=== PATIENT | male | born 1975 | race Caucasian/White ===

== ENCOUNTER 2022-07-01 11:58 | Inpatient (IN) | payer MEDICARE, OTHER ==
[~2022-07-01] VITALS: Ht 190.5 cm; Wt 69.1 kg
[2022-07-01 13:03] LABS: HEMOGLOBIN 15.5 gm/dl (14.0-17.5); RED BLOOD COUNT 5.03 M/UL (4.20-5.50); WHITE BLOOD COUNT 16.3 K/UL (4.5-11.0)
[2022-07-01 13:29] LABS: BUN/CREATININE RATIO 15 (0-10)
[2022-07-02 07:07] LABS: HEMOGLOBIN 14.8 gm/dl (14.0-17.5); RED BLOOD COUNT 4.78 M/UL (4.20-5.50)
[2022-07-02 07:36] LABS: BUN/CREATININE RATIO 15 (0-10)
--- NOTE | 2022-07-03 19:05 | NUR ---
PATIENT DECIDED TO LEAVE AMA. PATIENT EDUCATED TO THE RISKS OF LEAVING AMA. PROVIDER NOTIFIED.
== END 2022-07-03 18:54 | disposition left against medical advice (07) | DRG 373 ==
LOC: ER1 11:58 → MED SURG 4 17:10 → CDU 17:10 → MED SURG 4 20:12
PROVIDERS: Physician Assistant; ADMIT Surgery
DX: K35.32 Acute appendicitis with perforation, localized peritonitis, and gangrene, without abscess (principal); F17.210 Nicotine dependence, cigarettes, uncomplicated; Z53.21 Procedure and treatment not carried out due to patient leaving prior to being seen by health care provider
CPT/HCPCS: 71045; 80048; 80053; 83605; 85025; 87040; 93005; 96374; 96375; 99285; J2270; J2405; J2543; Q9967